=== PATIENT | female | born 1975 | race African-American/Black ===

== ENCOUNTER 2024-11-16 07:51 | Inpatient (IN) | payer OTHER ==
[~2024-11-16] VITALS: Ht 160 cm; Wt 74.8 kg
[2024-11-16] MEDS ORDERED: KETOROLAC TROMETHAMINE 30 MG VIAL IU ONE (08:30)
[2024-11-16] MEDS ORDERED: KETOROLAC TROMETHAMINE 30 MG VIAL ONE (08:39)
[2024-11-16 09:00] LABS: HEMOGLOBIN 14.2 g/dL (12.0-15.00); MEAN CELL VOLUME 92.9 fL (80.00-100.00); MEAN CORPUSCULAR HEMOGLOBIN 32.9 pg (27.00-32.0); MEAN CORPUSCULAR HGB CONC 35.4 g/dl (32.0-36.0); PLATELET COUNT 215 K/uL (150-450); RED BLOOD COUNT 4.31 M/uL (4.00-6.00)
[2024-11-16 09:25] LABS: INR 1.12; PARTIAL THROMBOPLASTIN TIME 27.3 SECONDS (22.0-34.0); PROTHROMBIN TIME 12.1 SECONDS (9.0-11.5)
[2024-11-16 09:43] LABS: ALBUMIN 3.5 gm/dL (3.4-5.0); ALKALINE PHOSPHATASE 41 U/L (50-136); ALT/SGPT 82 U/L (12-78); ANION GAP 9 (10.0-20.0); AST/SGOT 23 U/L (15-37); BILIRUBIN TOTAL 0.91 mg/dL (0.3-1.2); BLOOD UREA NITROGEN 9 mg/dL (7-18); BUN CREA RATIO 12 (7.0-25.0); CALCIUM 8.7 mg/dL (8.5-10.1); CARBON DIOXIDE 28 mEq/L (21-32); CHLORIDE 106 mmol/L (98-107); CREATININE SERUM 0.74 mg/dL (0.55-1.02); GFR 83.76; GLOBULINA 3.3 G/DL (2.4-3.5); GLUCOSE FASTING 117 mg/dL (65-100); HCG QUANTITATIVE < 1 mUI/mL (1-3); OSMOLALITY SERUM 277 MOSM/KG (275-295); POTASSIUM 3.52 mEq/L (3.5-5.1); SODIUM 139 mmol/L (136-145); TOTAL PROTEIN 6.8 gm/dL (6.4-8.2)
[2024-11-16 11:10] LABS: PH,URINE 6.5 (5.0-8.0); URINE APPEARANCE Cloudy; URINE BILIRRUBIN Small (NEGATIVE); URINE BLOOD Negative; URINE COLOR Dark Yellow; URINE GLUCOSE Negative (NEGATIVE); URINE KETONE 15 (NEGATIVE); URINE LEUKOCYTE Trace; URINE NITRATE Negative; URINE PROTEIN Trace (NEGATIVE)
[2024-11-16 11:13] LABS: URINE BACTERIA 928.9 uL (0.0-1933); URINE EPITHELIAL CELLS 38.7 uL (0.0-38.8); URINE RBC 10.1 uL (0.0-20.8); URINE WBC 22.7 uL (0.0-23.2)
[2024-11-16 11:36] LABS: URINE CAST 0.58 uL (0.0-1.40)
[2024-11-16] MEDS ORDERED: FAMOTIDINE/PF 20 MG in 0.9 % SODIUM CHLORIDE 8 ML IV PUSH SCH (12:44)
[2024-11-16] MEDS ORDERED: PIPERACILLIN/TAZOBACTAM SODIUM 3.375 GM in 0.9 % SODIUM CHLORIDE 100 ML IV SCH (12:44)
[2024-11-16] MEDS ORDERED: CEFAZOLIN SODIUM 1,000 MG VIAL IV ONE (12:45)
[2024-11-16] MEDS ORDERED: 0.9 % SODIUM CHLORIDE 1,000 ML IV SCH (12:45)
[2024-11-16] MEDS ORDERED: ACETAMINOPHEN 325 MG TABLET PO PRN (12:45)
[2024-11-16] MEDS ORDERED: MORPHINE SULFATE 2 MG/ML CARTRIDGE IV PRN (12:45)
[2024-11-16] MEDS ORDERED: CEFAZOLIN SODIUM 1,000 MG VIAL ONE (13:03)
[2024-11-16] MEDS ORDERED: PIPERACILLIN/TAZOBACTAM SODIUM 3.375 GM VIAL IV ONE (13:03)
[2024-11-16] MEDS ORDERED: FAMOTIDINE/PF 20 MG/2 ML VIAL ONE (13:03)
[2024-11-16 13:37] VITALS: BP 137/80
[2024-11-16 17:49] VITALS: BP 107/62; O2SAT 98
[2024-11-16] MEDS ORDERED: ACETAMINOPHEN 500 MG GEL..CAP PO PRN (19:45)
[2024-11-17 01:06] VITALS: BP 99/57; O2SAT 98
[2024-11-17 09:16] VITALS: BP 104/61; O2SAT 95
[2024-11-17 16:56] VITALS: BP 102/61; O2SAT 97
[2024-11-17] MEDS ORDERED: LIDOCAINE HCL 1%/EPINEPHRINE 20ML VIAL IJ ONE (22:07)
[2024-11-17] MEDS ORDERED: BUPIVACAINE HCL/MPF 0.5% 30ML VIAL ONE (22:07)
[2024-11-17] MEDS ORDERED: MORPHINE SULFATE 2 MG/ML CARTRIDGE IV PRN (22:38)
[2024-11-17] MEDS ORDERED: ONDANSETRON HCL 2 MG/ML VIAL IV PRN (22:45)
[2024-11-17] MEDS ORDERED: LIDOCAINE HCL 1% 20 ML VIAL IJ ONE (22:50)
[2024-11-17] MEDS ORDERED: CEFAZOLIN SODIUM 1,000 MG VIAL ONE (23:00)
[2024-11-17] MEDS ORDERED: SUGAMMADEX SODIUM 200 MG/2 ML VIAL IV ONE (23:39)
[2024-11-18] MEDS ORDERED: GABAPENTIN 300 MG CAPSULE PO SCH (01:00)
[2024-11-18] MEDS ORDERED: MORPHINE SULFATE 4 MG/ML VIAL IV ONE (01:30)
[2024-11-18] MEDS ORDERED: PIPERACILLIN/TAZOBACTAM SODIUM 3.375 GM VIAL IV ONE (01:34)
[2024-11-18 05:30] VITALS: BP 118/60
[2024-11-18 06:36] VITALS: O2SAT 100
[2024-11-18 08:50] VITALS: BP 107/60
[2024-11-18] MEDS ORDERED: ENOXAPARIN SODIUM 40 MG/0.4 ML SYRINGE SUBCUTANEO SCH (09:00)
[2024-11-18] MEDS ORDERED: MORPHINE SULFATE 4 MG/ML CARTRIDGE IV PRN (10:15)
[2024-11-18] MEDS ORDERED: SUGAMMADEX SODIUM 200 MG/2 ML VIAL IV ONE (18:00)
== END 2024-11-18 14:37 | disposition home or self-care (01) | DRG 399 ==
LOC: ER 07:54 → SEC-K 13:53 → MEDI 13:53
PROVIDERS: General Practice; ADMIT Student in an Organized Health Care Education/Training Program; ATTEND Student in an Organized Health Care Education/Training Program
PROC: BW21YZZ Computerized Tomography (CT Scan) of Abdomen and Pelvis using Other Contrast (ICD-10-PCS; 2024-11-16)
PROC: 0DTJ4ZZ Resection of Appendix, Percutaneous Endoscopic Approach (ICD-10-PCS; principal; 2024-11-18)
DX: K35.32 Acute appendicitis with perforation, localized peritonitis, and gangrene, without abscess (principal)